=== PATIENT | male | born 1990 | race Caucasian/White ===

== ENCOUNTER 2021-03-26 10:37 | Emergency (ER) | payer SELFPAY ==
[2021-03-26] MEDS ORDERED: Bacitracin Oint 1 GM U/D Packet TOP ONE (11:05)
[2021-03-26] MEDS ORDERED: Lidocaine 1% 30 ML SDV INJECT ONE (11:05)
--- NOTE | 2021-03-26 11:51 | EDM.PDOC ---
<Helen Jansen - Last Filed: 03/26/21 12:06> ED HPI GENERAL MEDICAL PROBLEM - General Chief Complaint: Laceration Stated Complaint: LACERATION LEFT LEG Time Seen by Provider: 03/26/21 11:30 Source of Information: Reports: Patient History Limitations: Reports: No Limitations - History of Present Illness INITIAL COMMENTS - FREE TEXT/NARRATIVE: The patient presents to the ED due to a laceration on his left medial distal thigh. He reports he sustained the laceration while he was skinning a deer while hunting. He accidentally lacerated his left leg with a clean knife. He reports he cleaned it with alcohol wipes at the time and came straight to the ED. He reports his tetanus is up to date. He denies fevers, chills, nausea, abdominal pain, diarrhea or constipation. He denies other symptoms or concerns at this time. Onset: Today Location: Reports: Lower Extremity, Left Left Upper Leg Pain Score (Numeric/FACES): 5 - Related Data Allergies Allergy/AdvReac Type Severity Reaction Status Date / Time amoxicillin Allergy Mild Rash Verified 03/26/21 11:14 azithromycin Allergy Mild Rash Verified 03/26/21 11:14 Penicillins Allergy Mild Diarrhea Verified 03/26/21 11:14 Home Meds: Home Meds Sertraline [Zoloft] 50 mg PO DAILY 03/26/21 [History] Past Medical History Psychiatric History: Reports: Depression Social & Family History - Tobacco Use Tobacco Use Status *Q: Never Tobacco User - Caffeine Use Caffeine Use: Reports: None - Recreational Drug Use Recreational Drug Use: No ED ROS GENERAL - Review of Systems Review Of Systems: See Below Constitutional: Reports: No Symptoms HEENT: Reports: No Symptoms Respiratory: Reports: No Symptoms Cardiovascular: Reports: No Symptoms GI/Abdominal: Reports: No Symptoms Musculoskeletal: Reports: No Symptoms Skin: Reports: Wound Neurological: Reports: No Symptoms Psychiatric: Reports: No Symptoms Hematologic/Lymphatic: Reports: No Symptoms Immunologic: Reports: No Symptoms ED EXAM, SKIN/RASH Exam: See Below Exam Limited By: No Limitations General Appearance: Alert, No Apparent Distress Extremities: Normal Inspection, Normal Range of Motion, Non-Tender, No Pedal Edema, Normal Capillary Refill. No: Pedal Edema Neurological: Alert, Oriented, CN II-XII Intact, Normal Cognition, Normal Gait, Normal Reflexes, No Motor/Sensory Deficits Psychiatric: Normal Affect, Normal Mood Skin: Warm, Normal Color, No Rash, Wound/Incision (2 cm sized laceration at the left medial distal thigh with clean edges. Some bleeding. No significant surrounding erythema or bruising.). No: Cyanosis, Ecchymosis, Increased Warmth ED SKIN PROCEDURES - Laceration/Wound Repair Left Lower Medial Distal Thigh Distal NVT: Neuro & Vascular Intact, No Tendon Injury Anesthetic Type: Local Local Anesthesia - Lidocaine (Xylocaine): 1% Plain Local Anesthetic Volume: Other (15 cc) Skin Prep: Isopropyl Alcohol (Alcohol), Saline, Sterile Drape Exploration/Debridement/Repair: Wound Explored, In a Bloodless Field, Explored to Base, Minimal Debridement, No Foreign Material Found Closed with: Sutures Lac/Wound length In cm: 2 Suture Size: 4-0 # of Sutures: 4 Suture Type: Nylon, Interrupted Sterile Dressing Applied: Provider Tetanus Status Addressed: Yes Complications: No Departure - Departure Time of Disposition: 11:45 Disposition: Home, Self-Care 01 Condition: Good Clinical Impression: Laceration - Discharge Information *PRESCRIPTION DRUG MONITORING PROGRAM REVIEWED*: No *COPY OF PRESCRIPTION DRUG MONITORING REPORT IN PATIENT TAWNYA: No Instructions: Laceration Care, Adult, [id number] Forms: ED Department Discharge Additional Instructions: Keep covered for at least first 3 days. Recommend daily bandage changes. May also use antibiotic ointment as needed. Tylenol or Ibuprofen as needed for pain or swelling. Follow-up with your PCP for suture removal in 7-10 days. Return if increasing redness, swelling, pain or concern for infection. Sepsis Event Note (ED) - Evaluation Sepsis Screening Result: No Definite Risk <Trey Whitmore - Last Filed: 03/26/21 12:19> Course - Vital Signs Last Recorded V/S: Last Vital Signs Temp 98.2 F 03/26/21 11:14 Pulse 78 03/26/21 11:14 Resp 16 03/26/21 11:14 BP 129/85 03/26/21 11:14 Pulse Ox 98 03/26/21 11:14 - Orders/Labs/Meds Meds: Medications Discontinued Medications Generic Name Dose Route Start Last Admin Trade Name Freq PRN Reason Stop Dose Admin Bacitracin 1 dose 03/26/21 11:05 03/26/21 11:14 Bacitracin Oint 1 Gm U/D Packet TOP 03/26/21 11:06 1 dose ONETIME ONE Administration Lidocaine HCl 30 ml 03/26/21 11:05 03/26/21 11:14 Lidocaine 1% 30 Ml Sdv INJECT 03/26/21 11:06 30 ml ONETIME ONE Administration - Re-Assessments/Exams Free Text/Narrative Re-Assessment/Exam: 03/26/21 12:19 I saw and evaluated the patient. Discussed with resident and agree with residents findings and plan as documented in the residents note. Sepsis Event Note (ED) - Focused Exam Vital Signs: Vital Signs Temp Pulse Resp BP Pulse Ox 03/26/21 11:14 98.2 F 78 16 129/85 98
== END 2021-03-26 11:54 | disposition home or self-care (01) ==
LOC: DL.ED 10:37
DX: S71.112A Laceration without foreign body, left thigh, initial encounter (principal); Z88.0 Allergy status to penicillin; Z88.1 Allergy status to other antibiotic agents; W26.0XXA Contact with knife, initial encounter
CPT/HCPCS: 12001; 99282-25